=== PATIENT | female | born 1960 | race African-American/Black ===

== ENCOUNTER 2017-07-06 15:04 | Emergency (ER) | payer MEDICARE, MEDICAID ==
--- NOTE | 2017-07-06 15:28 | EDM.PDOC ---
ED HPI GENERAL MEDICAL PROBLEM - General Chief Complaint: Allergic Reaction Stated Complaint: FACE BURNING Time Seen by Provider: 07/06/17 15:15 Source of Information: Reports: Patient History Limitations: Reports: No Limitations - History of Present Illness INITIAL COMMENTS - FREE TEXT/NARRATIVE: Patient comes in with a one-day history of skin irritation of both eyes. Patient use a washcloth with gain detergent on it. Patient is very sensitive to most topical substances echo in contact with her skin. Patient states she began having a burning sensation afterwards she ended up taking 2 Benadryl this morning however the Burn continues along with irritation under both eyes. Patient presents here for further management and treatment. Patient denies having any discharge from either of the eyes, vision changes, dizziness, lightheaded, or rashes. Pt states she did take 2 Benadryl this am around 10am with great relief however the discomfort and burning has returned again. She has also tried using cold water flush with relief for short period of time. Quality: Reports: Burning Severity: Moderate Improves with: Reports: Cold Therapy Associated Symptoms: Reports: No Other Symptoms Treatments CHRO: Reports: Other (see below) (benadryl, cold water wash over the face) - Related Data Allergies Allergy/AdvReac Type Severity Reaction Status Date / Time blueberry Allergy Cannot Verified 07/06/17 15:18 Remember metronidazole [From Flagyl] Allergy Cannot Verified 07/06/17 15:18 Remember peanut Allergy Cannot Verified 07/06/17 15:18 Remember Penicillins Allergy Cannot Verified 07/06/17 15:18 Remember Home Meds: Home Meds . [No Known Home Meds] 07/06/17 [History] ED ROS ALLERGIC REACTION - Review of Systems Review Of Systems: See Below Constitutional: Reports: No Symptoms HEENT: Reports: No Symptoms Respiratory: Reports: No Symptoms Cardiovascular: Reports: No Symptoms GI/Abdominal: Reports: No Symptoms Skin: Reports: Burn(s) (bilater on cheek bones ). Denies: Jaundice, Mottled, Pallor, Diaphoresis, Dryness, Bruising, Pruritis, Change in Color, Change in Hair/Nails, Lesions, Lumps Neurological: Reports: No Symptoms ED EXAM GENERAL NO PERIP PULSE - Physical Exam Exam: See Below Exam Limited By: No Limitations General Appearance: Alert, WD/WN, No Apparent Distress Ears: Normal External Exam Nose: Normal Inspection Throat/Mouth: Normal Inspection Head: Atraumatic, Normocephalic Neck: Normal Inspection, Supple Respiratory/Chest: No Respiratory Distress Neurological: Alert, Oriented, Normal Gait Skin Exam: Warm, Intact, Other (burn 1st and 2nd degree martinez on bilateral upper cheek bones. Tenderness and warmth noted. No swelling or drainage noted. 3 small pea size open martinez and 2 small pea size 1st degree martinez. ) Course - Orders/Labs/Meds Meds: Medications Discontinued Medications Generic Name Dose Route Start Last Admin Trade Name Freq PRN Reason Stop Dose Admin Diphenhydramine HCl 50 mg 07/06/17 15:20 Benadryl PO 07/06/17 15:21 ONETIME ONE Departure - Departure Time of Disposition: 15:40 Disposition: Home, Self-Care 01 Condition: Good Clinical Impression: Chemical burn Allergic reaction Qualifiers: Encounter type: initial encounter Qualified Code(s): T78.40XA - Allergy, unspecified, initial encounter - Discharge Information Instructions: Allergies, Blisters, Chemical Burn, [id number] Additional Instructions: Cold compress of bilateral cheekbones 3 times a day at 20 minute intervals Take Benadryl every 4 hours as needed for itching and rash appearance Can take ibuprofen or Tylenol [id number] for any pain or discomfort Keep exposed area covered and cleaned Avoid irritants to the skin that can cause a reaction Follow up with PCP within the week if not better Activity and diet as tolerated
[2017-07-06] MEDS: diphenhydrAMINE 25 MG Cap PO ONE (15:34)
== END 2017-07-06 15:39 | disposition home or self-care (01) ==
LOC: VM.ED 15:04
DX: T55.1X1A Toxic effect of detergents, accidental (unintentional), initial encounter (principal); T20.66XA Corrosion of second degree of forehead and cheek, initial encounter; T78.40XA Allergy, unspecified, initial encounter; Z88.0 Allergy status to penicillin; Z91.010 Allergy to peanuts; Z88.1 Allergy status to other antibiotic agents
CPT/HCPCS: 99283; A9270